=== PATIENT | female | born 1985 | race Two or more races ===

== ENCOUNTER 2023-08-16 19:23 | Inpatient (IN) | payer MEDICAID, OTHER ==
[~2023-08-16] VITALS: Ht 165.1 cm; Wt 78.0 kg
[2023-08-16 20:00] VITALS: BP 126/85; PULSE 81; RESP 18; TEMP 99.9
[2023-08-16] MEDS ORDERED: METHYLERGONOVINE 0.2 MG/ML AMP IM PRN (20:20)
[2023-08-16] MEDS ORDERED: ONDANSETRON 4 MG/2 ML VIAL IVP PRN (20:20)
[2023-08-16] MEDS ORDERED: CARBOPROST 250 MCG/ML AMP IM PRN (20:20)
[2023-08-16] MEDS ORDERED: MORPHINE SULFATE 10 MG/ML VIAL IVP PRN (20:20)
[2023-08-16 21:07] LABS: BASOPHILS % (AUTO) 0.4 % (0.0-2.0); EOSINOPHILS # (AUTO) 0.1 K/uL (0-0.4); EOSINOPHILS % (AUTO) 0.9 % (0.0-4.0); HEMOGLOBIN 12.3 g/dL (12.0-16.0); LYMPHOCYTES # (AUTO) 2.5 K/uL (2.5-16.5); LYMPHOCYTES % (AUTO) 21.5 % (20.5-51.1); MEAN CORPUSCULAR HEMOGLOBIN 33 pg (27-31); MEAN CORPUSCULAR HGB CONC 35 g/dL (33-37); MEAN CORPUSCULAR VOLUME 92.3 fL (80-94); MONOCYTES # (AUTO) 0.9 K/uL (0.8-1.0); MONOCYTES % (AUTO) 7.9 % (1.7-9.3); NEUTROPHILS # (AUTO) 8.1 K/uL (1.8-7.7); NEUTROPHILS % (AUTO) 69.3 % (42.2-75.2); PLATELET COUNT (AUTO) 251 K/uL (140-450); RED BLOOD CELL COUNT(AUTO) 3.79 MIL/uL (4.20-5.40); RED CELL DISTRIBUTION WIDTH 14.6 % (11.6-13.7); WHITE BLOOD COUNT (AUTO) 11.6 K/uL (4.8-10.8)
[2023-08-16 21:15] LABS: APPEARANCE,URINE CLEAR (CLEAR); BILIRUBIN,URINE NEGATIVE (NEGATIVE); BLOOD, URINE NEGATIVE (NEGATIVE); COLOR,URINE YELLOW (YELLOW); LEUKOCYTE ESTERASE ,URINE TRACE (NEGATIVE); NITRITE, URINE NEGATIVE (NEGATIVE); PROTEIN,URINE NEGATIVE (NEGATIVE); UGLUCOSE NEGATIVE (NEGATIVE); UROBILINOGEN,URINE 0.2 EU/dL (0.2 - 1)
[2023-08-16 21:23] LABS: INR 0.92 (0.8-1.2); PARTIAL THROMBOPLASTIN TIME 27.1 secs (22-35.6); PROTHROMBIN TIME 9.7 secs (10.8-13.4)
[2023-08-16 21:24] LABS: BACTERIA,URINE FEW /HPF (None Seen); MUCUS,URINE 1+ /LPF (None Seen); RBC,URINE 0-5 /HPF (0-5); SQUAMOUS EPITHELIAL CELL,UR 0-3 (FEW) /LPF (0-3 (FEW)); WBC,URINE 0-5 /HPF (0-5)
[2023-08-16 21:25] LABS: ALBUMIN 2.6 g/dL (3.4-5.0); ANION GAP 13.4 (8-16); CALCIUM 8.9 mg/dL (8.5-10.1); CARBON DIOXIDE 22.5 mmol/L (21-32); CREATININE 0.8 mg/dL (0.6-1.3); POTASSIUM 3.9 mmol/L (3.5-5.1); TOTAL BILIRUBIN 0.2 mg/dL (0.0-1.0); TOTAL PROTEIN, SERUM 6.2 g/dL (6.4-8.2); TRICHOMONAS,URINE None Seen /HPF (None Seen); YEAST,URINE None Seen /HPF (None Seen)
[2023-08-17] MEDS: LACTATED RINGERS 1,000 ML IV SCH ×2 (00:18→20:10)
[2023-08-17] MEDS ORDERED: ROPIVACAINE 0.2%/NS PREMIX 200 ML EPI ONE ×2 (00:49→16:24)
[2023-08-17] MEDS: OXYTOCIN/0.9 % SODIUM CHLORIDE 500 ML IV SCH ×2 (01:19→20:10)
[2023-08-17] MEDS ORDERED: NITROGLYCERIN 0.4 MG TAB SL ONE ×2 (20:05→20:19)
[2023-08-17] MEDS ORDERED: MEDS-TO-BEDS MC SCH (21:00)
[2023-08-17] MEDS ORDERED: MEPERIDINE 25 MG/ML SYR ONE (21:04)
[2023-08-17] MEDS ORDERED: METOCLOPRAMIDE 10 MG/2 ML INJ VIAL ONE (21:05)
[2023-08-17] MEDS ORDERED: ONDANSETRON 4 MG/2 ML VIAL ONE (21:05)
[2023-08-17] MEDS ORDERED: ceFAZolin 1,000 MG VIAL ONE (21:06)
[2023-08-17] MEDS ORDERED: HYDROmorphone 1 MG/ML AMP IVP PRN (21:15)
[2023-08-17] MEDS ORDERED: diphenhydrAMINE 50 MG/ML VIAL IVP PRN (21:15)
[2023-08-17] MEDS ORDERED: ONDANSETRON 4 MG/2 ML VIAL IVP PRN (21:15)
[2023-08-18] MEDS ORDERED: HYDROcodone/APAP 5/325 MG 1 TAB TAB PO PRN (00:05)
[2023-08-18] MEDS ORDERED: MEASLES, MUMPS, AND RUBELLA 1 VIAL SQVAC ONE (00:05)
[2023-08-18] MEDS ORDERED: IBUPROFEN 600 MG TAB PO PRN (00:05)
[2023-08-18] MEDS ORDERED: BENZOCAINE/MENTHOL 20%-0.5% 60 GM CAN TP PRN (00:05)
[2023-08-18] MEDS ORDERED: METHYLERGONOVINE 0.2 MG/ML AMP IM PRN (00:05)
[2023-08-18] MEDS ORDERED: TEMAZEPAM 15 MG CAP PO PRN (00:05)
[2023-08-18] MEDS ORDERED: oxyCODONE/APAP 5/325 MG 1 TAB TAB PO PRN (00:05)
[2023-08-18] MEDS ORDERED: OXYTOCIN 10 UNITS/ML VIAL IM PRN (00:05)
[2023-08-18 06:09] LABS: HEMATOCRIT 28.7 % (36-48)
[2023-08-18] MEDS: DOCUSATE SOD/SENNA 50/8.6 MG 1 TAB PO SCH (20:57)
== END 2023-08-19 14:37 | disposition home or self-care (01) | DRG 560 ==
LOC: MLD 19:23 → MFCC 08-18 00:05
PROVIDERS: ADMIT Obstetrics & Gynecology; ATTEND Obstetrics & Gynecology
PROC: 10E0XZZ Delivery of Products of Conception, External Approach (ICD-10-PCS; principal; 2023-08-18)
PROC: 10D17Z9 Manual Extraction of Products of Conception, Retained, Via Natural or Artificial Opening (ICD-10-PCS; 2023-08-18)
PROC: 10D07Z8 Extraction of Products of Conception, Other, Via Natural or Artificial Opening (ICD-10-PCS; 2023-08-18)
DX: O36.5930 Maternal care for other known or suspected poor fetal growth, third trimester, not applicable or unspecified (principal); Z37.0 Single live birth; O72.0 Third-stage hemorrhage; O43.893 Other placental disorders, third trimester; Z3A.38 38 weeks gestation of pregnancy; O70.1 Second degree perineal laceration during delivery; Z20.822 Contact with and (suspected) exposure to COVID-19
CPT/HCPCS: 36415; 51702; 80053; 81001; 85018; 85025; 85610; 85730; 86592; 86886; 86900; 86901; J0690; J2175; J2405; J2590; J2765; J2795; J7030